=== PATIENT | female | born 1955 | race Caucasian/White ===

== ENCOUNTER → 2020-07-17 | Outpatient (CLI) | payer MEDICARE, OTHER ==
[~2020-07-17] MED LIST: ALPRAZOLAM1 MG PO; BACTRIM DS TAB1 EACH PO; CIPRO500 MG PO; GABAPENTIN600 MG PO; HYDROCODON-ACE1 EAC4 PO; HYDROCODON-ACE1 EAC6 PO; HYDROXYCHLOROQ200 MG PO; NAPROSYN500 MG PO; PILOCARPINE HCL5 MG PO; PLAQUENIL 200200 MG PO; PROZAC 20 MG CA20 MG PO; PYRIDIUM100 MG PO; QUETIAPINE FUM100 MG PO; SILENOR6 MG PO
[2020-07-17 09:07] LABS: HEMOGLOBIN 13.7 gm/dl (12.3-15.3); RED BLOOD COUNT 4.24 M/UL (4.00-5.10)
== END ==
LOC: OPSV2 07-16 11:00
PROVIDERS: Obstetrics & Gynecology
DX: Z01.818 Encounter for other preprocedural examination (principal); R32 Unspecified urinary incontinence; R91.8 Other nonspecific abnormal finding of lung field; R94.31 Abnormal electrocardiogram [ECG] [EKG]
CPT/HCPCS: 36415; 71046; 81001; 85025; 93005

== ENCOUNTER 2020-07-18 10:20 | Day surgery (SDC) | payer MEDICARE, OTHER ==
[~2020-07-18] VITALS: Ht 167.6 cm; Wt 83.5 kg
[~2020-07-18 10:20] MED LIST changes: -BACTRIM DS TAB1 EACH PO; -CIPRO500 MG PO; -HYDROCODON-ACE1 EAC4 PO; -HYDROXYCHLOROQ200 MG PO; -NAPROSYN500 MG PO; -PILOCARPINE HCL5 MG PO; -PLAQUENIL 200200 MG PO; -SILENOR6 MG PO
[2020-07-18] MEDS ORDERED: HYDROXYCHLOROQ200 MG PO (11:20)
[2020-07-18] MEDS ORDERED: PILOCARPINE HCL5 MG PO (11:21)
[2020-07-18] MEDS ORDERED: HYDROCODON-ACE1 EAC4 PO (14:11)
[2020-07-18] MEDS ORDERED: PLAQUENIL 200200 MG PO (17:52)
[2020-07-19 04:48] LABS: HEMOGLOBIN 11.9 gm/dl (12.3-15.3)
[2020-07-19] MEDS ORDERED: NAPROSYN500 MG PO (09:25)
--- NOTE | 2020-07-19 16:25 | NUR ---
SPOKE WITH AT THIS TIME ABOUT PATIENT 3RD PVR RESULT WHICH WAS 300 ML'S. HE STATES THAT THE PATIENT DOES NOT NEED TO BE DISCHARGED TODAY AND TO REPEAT THE PVR TEST AT 1900,[id number] AND HE WILL RE-EVALUATE IN THE MORNING. PATIENT IS AGREEABLE TO STAY AND STATES THAT SHE WILL CONTINUE TO VOID OFTEN POSSIBLE.
== END 2020-07-20 11:31 | disposition home or self-care (01) ==
LOC: OR 10:20 → MED SURG 4 15:20 → OR 15:27 → MED SURG 4 15:27 → OR 15:27 → MED SURG 4 07-20 11:31
PROVIDERS: Obstetrics & Gynecology
PROC: 0TSD0ZZ Reposition Urethra, Open Approach (ICD-10-PCS; principal; 2020-07-18 14:30)
DX: N39.46 Mixed incontinence (principal); E78.5 Hyperlipidemia, unspecified; K21.9 Gastro-esophageal reflux disease without esophagitis; M79.7 Fibromyalgia; M32.9 Systemic lupus erythematosus, unspecified; M35.00 Sjogren syndrome, unspecified; F32.9 Major depressive disorder, single episode, unspecified; Z88.0 Allergy status to penicillin; Z79.899 Other long term (current) drug therapy; Z86.16 Personal history of COVID-19
CPT/HCPCS: 36415; 85014; 85018; C1769; C1771; J1100; J1170; J1580; J2250; J2270; J2405; J2704; J2795; J3010; J7120

== ENCOUNTER 2020-08-10 17:44 | Emergency (ER) | payer MEDICARE, OTHER ==
[~2020-08-10] VITALS: Ht 167.6 cm; Wt 83.9 kg
[~2020-08-10 17:44] MED LIST changes: +HYDROCODON-ACE1 EAC4 PO; +HYDROXYCHLOROQ200 MG PO; +NAPROSYN500 MG PO; +PILOCARPINE HCL5 MG PO; +PLAQUENIL 200200 MG PO
[2020-08-10 19:54] LABS: HEMOGLOBIN 13.4 gm/dl (12.3-15.3); RED BLOOD COUNT 4.07 M/UL (4.00-5.10); WHITE BLOOD COUNT 4.3 K/UL (4.5-11.0)
[2020-08-11] MEDS ORDERED: HYDROCODON-ACE1 EAC6 PO (01:19)
[2020-08-11] MEDS ORDERED: SILENOR6 MG PO (01:23)
[2020-08-11] MEDS ORDERED: BACTRIM DS TAB1 EACH PO (01:24)
[2020-08-11] MEDS ORDERED: CIPRO500 MG PO (15:56)
== END 2020-08-11 10:30 | disposition left against medical advice (07) ==
LOC: ER1 17:44 → CDU 22:01 → ER1 22:01 → CDU 22:01
PROVIDERS: Preventive Medicine Occupational Medicine
DX: R41.82 Altered mental status, unspecified (principal); N39.0 Urinary tract infection, site not specified; I95.9 Hypotension, unspecified; U07.1 COVID-19; Z79.899 Other long term (current) drug therapy; Z53.20 Procedure and treatment not carried out because of patient's decision for unspecified reasons; Z88.0 Allergy status to penicillin
CPT/HCPCS: 0240U; 36600; 70450; 80053; 81001; 82009; 82533; 82550; 82553; 82803; 83605; 83690; 83874; 83880; 84484; 85025; 85652; 86140; 87040; 87086; 93005; 96365; 96375; 99285; J1956; J2405; J7030

== ENCOUNTER 2021-05-07 22:52 | Emergency (ER) | payer MEDICARE, OTHER ==
[~2021-05-07 22:52] MED LIST changes: +BACTRIM DS TAB1 EACH PO; +CIPRO500 MG PO; +SILENOR6 MG PO
[2021-05-07] MEDS ORDERED: CLEOCIN HCL150 MG PO (23:30)
== END 2021-05-07 23:30 | disposition home or self-care (01) ==
LOC: ER1 22:52
DX: J34.0 Abscess, furuncle and carbuncle of nose (principal); Z88.0 Allergy status to penicillin; Z90.49 Acquired absence of other specified parts of digestive tract; Z90.710 Acquired absence of both cervix and uterus
CPT/HCPCS: 99282